=== PATIENT | female | born 1950 ===

== ENCOUNTER → 2023-06-25 10:35 | Outpatient (REF) | payer MEDICARE, BC, SELFPAY | LOC: DHCBC MAIN 10:35 | PROVIDERS: ATTENDING PHYSICIAN Internal Medicine Cardiovascular Disease; FAMILY PHYSICIAN Family Medicine | DX: I49.3 Ventricular premature depolarization (principal) | CPT/HCPCS: 93306 ==

== ENCOUNTER 2023-12-21 12:58 | Outpatient (RCR) | payer MEDICARE, BC, SELFPAY | END 2023-12-21 23:59 | disposition home or self-care (01) | LOC: ROT 12:58 | PROVIDERS: ATTENDING PHYSICIAN Nurse Practitioner Adult Health; FAMILY PHYSICIAN Family Medicine | DX: I63.9 Cerebral infarction, unspecified (principal); Z73.6 Limitation of activities due to disability | CPT/HCPCS: 97010; 97110; 97140; 97163; 97167; 97530; 97535 ==

== ENCOUNTER 2024-01-14 10:59 | Outpatient (RCR) | payer MEDICARE, BC, SELFPAY | END 2024-01-14 23:59 | disposition home or self-care (01) | LOC: ROT 10:59 | PROVIDERS: ATTENDING PHYSICIAN Nurse Practitioner Adult Health; FAMILY PHYSICIAN Family Medicine | DX: I69.354 Hemiplegia and hemiparesis following cerebral infarction affecting left non-dominant side (principal); Z73.6 Limitation of activities due to disability | CPT/HCPCS: 97010; 97110; 97140; 97530; 97535 ==

== ENCOUNTER 2024-02-01 13:22 | Outpatient (RCR) | payer MEDICARE, BC, SELFPAY | END 2024-02-04 15:36 | disposition home or self-care (01) | LOC: ROT 13:22 | PROVIDERS: ATTENDING PHYSICIAN Nurse Practitioner Adult Health; FAMILY PHYSICIAN Family Medicine | DX: I69.354 Hemiplegia and hemiparesis following cerebral infarction affecting left non-dominant side (principal); Z73.6 Limitation of activities due to disability; I69.391 Dysphagia following cerebral infarction; R13.10 Dysphagia, unspecified; I69.318 Other symptoms and signs involving cognitive functions following cerebral infarction; M19.90 Unspecified osteoarthritis, unspecified site | CPT/HCPCS: 97110; 97112; 97535 ==